=== PATIENT | female | born 1930 | race Asian ===

== ENCOUNTER 2017-02-21 12:32 | Emergency (ER) | payer MEDICARE, MEDICAID ==
[~2017-02-21] VITALS: Ht 147.3 cm; Wt 65.5 kg
[~2017-02-21 12:32] MED LIST: ALEN35TA32 PO; ALLO100T PO; ASPI-825 PO; COLC0.6T67 PO; LISI-618 PO; SLOWK8 PO; TRAM50TA4 PO; TRIA1TAB91 PO
[2017-02-21] MEDS ORDERED: FURO40 PO (12:57)
[2017-02-21] MEDS ORDERED: LISI-661 PO (12:57)
[2017-02-21] MEDS ORDERED: CALC25 PO (12:57)
[2017-02-21] MEDS ORDERED: RIFAX550 PO (12:57)
[2017-02-21] MEDS ORDERED: ATOR10TA84 PO (12:57)
[2017-02-21 14:38] LABS: INFLUENZA TYPE A NEGATIVE FOR TYPE A (NEGATIVE); INFLUENZA TYPE B POSITIVE FOR TYPE B (NEGATIVE)
[2017-02-21 16:24] LABS: ANION GAP 9 mmol/L (8-16); CALCIUM, TOTAL 9.3 mg/dL (8.8-10.5); CARBON DIOXIDE 27 mmol/L (22-29); CHLORIDE 105 mmol/L (98-107); CREATININE 0.95 mg/dL (0.60-1.30); GLOMERULAR FILTR. RATE CALC 56 mL/min (>60); GLUCOSE,RANDOM 88 mg/dL (70-110); POTASSIUM 3.9 mmol/L (3.5-5.1); SODIUM SERUM 141 mmol/L (136-145); UREA NITROGEN, BLOOD 14 mg/dL (7-18)
[2017-02-21 16:27] LABS: INR 1.2 (0.9-1.1); PROTHROMBIN TIME 12.3 SEC (9.4-11.6)
[2017-02-21 16:31] LABS: BASOPHILS % (AUTO) 0.3 % (0.0-2.0); EOSINOPHILS % (AUTO) 0.4 % (1.0-6.0); HEMATOCRIT 37.7 % (36-46); HEMOGLOBIN 13.1 g/dL (12.0-16.0); LYMPHOCYTES # (AUTO) 0.3 K/uL (1.0-4.8); LYMPHOCYTES % (AUTO) 11.8 % (22.0-44.0); MEAN CORPUSCULAR HEMOGLOBIN 33.8 pg (26.0-34.0); MEAN CORPUSCULAR HGB CONC 34.7 G/dL (31.0-37.0); MEAN CORPUSCULAR VOLUME 97 fL (80-100); MONOCYTES # (AUTO) 0.6 K/uL (0.1-1.0); MONOCYTES % (AUTO) 19.4 % (2.0-9.0); NEUTROPHILS # (AUTO) 1.9 K/uL (1.8-7.7); NEUTROPHILS % (AUTO) 68.1 % (40.0-70.0); PLATELET COUNT (AUTO) 66 K/uL (150-450); RED BLOOD CELL COUNT(AUTO) 3.87 MIL/uL (4.00-5.20)
[2017-02-21 16:47] LABS: APPEARANCE,URINE CLEAR (CLEAR); BILIRUBIN,URINE NEGATIVE (NEGATIVE); GLUCOSE, URINE (UA) NEGATIVE (NEGATIVE); KETONES,URINE NEGATIVE (NEGATIVE); LEUKOCYTE ESTERASE ,URINE NEGATIVE (NEGATIVE); NITRATE,URINE NEGATIVE (NEGATIVE); PH,URINE 6.5 (5.0-8.0); PROTEIN,URINE NEGATIVE (NEGATIVE)
[2017-02-21 16:49] LABS: ALANINE AMINOTRANSFERASE 47 U/L (12-78); ALBUMIN 3.2 g/dL (3.4-5.0); ALKALINE PHOSPHATASE 126 U/L (46-116); ASPARTATE AMINOTRANSFERASE 56 U/L (15-37); BILIRUBIN,TOTAL 0.8 mg/dL (0.1-1.0); CREATINE KINASE, TOTAL 105 U/L (26-192); TOTAL PROTEIN, SERUM 6.8 g/dL (6.4-8.2)
[2017-02-21 16:59] LABS: B-TYPE NATRIURETIC PEPTIDE 389 pg/mL (0-100)
[2017-02-21 17:13] LABS: OCCULT BLOOD,URINE SMALL (NEGATIVE)
[2017-02-21 17:14] LABS: BACTERIA,URINE None Seen /HPF (None Seen); WBC,URINE None Seen /HPF (0-5)
[2017-02-21] MEDS ORDERED: OSELTAMIVIR PHOSPHATE 75 MG CAPSULE PO ONE (17:45)
[2017-02-21 17:50] VITALS: BP 152/82
== END 2017-02-21 18:34 | disposition home or self-care (01) ==
LOC: EMS 12:36
DX: J11.1 Influenza due to unidentified influenza virus with other respiratory manifestations (principal); I12.9 Hypertensive chronic kidney disease with stage 1 through stage 4 chronic kidney disease, or unspecified chronic kidney disease; N18.3 Chronic kidney disease, stage 3 (moderate); Z79.82 Long term (current) use of aspirin; Z88.8 Allergy status to other drugs, medicaments and biological substances; Z85.9 Personal history of malignant neoplasm, unspecified
CPT/HCPCS: 87040; 87804; 93005; 99285